=== PATIENT | male | born 1965 | race Caucasian/White ===

== ENCOUNTER 2019-12-03 15:55 | Emergency (ER) | payer OTHER ==
[~2019-12-03] VITALS: Ht 185.4 cm; Wt 86.9 kg
[2019-12-03 16:41] LABS: BASOPHILS # (AUTO) 0.06 x10^3/uL (0-0.1); BASOPHILS % (AUTO) 1 % (0-1); EOSINOPHILS # (AUTO) 0.26 x10^3/uL (0-0.4); EOSINOPHILS % (AUTO) 3 % (1-7); LYMPHOCYTES # (AUTO) 1.63 x10^3/uL (1-3.4); LYMPHOCYTES % (AUTO) 19 % (22-44); MD NO; MEAN CORPUSCULAR HGB CONC 33.5 g/dL (33.2-36.2); MEAN CORPUSCULAR VOLUME 92.4 fL (81-97); MEAN PLATELET VOLUME 8.1 fL (7.4-10.4); MONOCYTES % (AUTO) 7 % (2-9); NEUTROPHILS # (AUTO) 6.15 x10^3/uL (1.8-6.8); NEUTROPHILS % (AUTO) 71 % (42-75); PLATELET COUNT 215 x10^3/uL (130-400); RED BLOOD COUNT 5.16 x10^6/uL (4.38-5.82); RED CELL DISTRIBUTION WIDTH 14.8 % (9.4-14.8)
--- NOTE | 2019-12-03 16:50 | NUR ---
assumed care of pt. pt here C/O intermittent CP for about 10 days. pt reports that he had a recent URI, but that the sx are gone. pt has no cardiac HX. denies SOB. no back pain. pink warm and dry. bno other c/o at this time. sitting up [facility] [place]. no family at bedside
[2019-12-03 16:52] LABS: ALBUMIN 4.3 g/dL (3.4-5.0); ANION GAP 7 mmol/L (5-15); CALCIUM 9.7 mg/dL (8.5-10.1); CHLORIDE 104 mmol/L (98-107); CREATININE 1.11 mg/dL (0.7-1.3)
[2019-12-03] MEDS ORDERED: THYR113. PO (16:52)
[2019-12-03 16:56] LABS: TROPONIN I < 0.015 ng/mL (0.000-0.045)
--- NOTE | 2019-12-03 17:00 | NUR ---
pt positioning for comfort.
--- NOTE | 2019-12-03 17:58 | NUR ---
no changes. waiting for lab results
--- NOTE | 2019-12-03 18:11 | NUR ---
chart up for MD recheck
--- NOTE | 2019-12-03 18:27 | NUR ---
pt awaiting recheck. sitting up on [facility] talking [employer] phone. no apparent distress
--- NOTE | 2019-12-03 18:43 | NUR ---
Temi at bedside fo recheck
--- NOTE | 2019-12-03 19:29 | NUR ---
Ariane Ricardo attempted to D/C pt, but pt registration needs to be corrected
[2019-12-03 19:50] VITALS: BP 102/68
--- NOTE | 2019-12-03 19:57 | NUR ---
this pt was D/C by another RN
== END 2019-12-03 19:54 | disposition home or self-care (01) ==
LOC: ED 16:24
DX: R07.89 Other chest pain (principal); E03.9 Hypothyroidism, unspecified
CPT/HCPCS: 36415; 71045; 80048; 82040; 84484; 85025; 85379; 93005; 99285